=== PATIENT | male | born 1950 | race American Indian/Alaskan Native ===

== ENCOUNTER 2020-07-04 12:38 | Outpatient (CLI) | payer OTHER ==
--- NOTE | 2020-07-04 16:51 | Magnetic Resonance Report ---
MRI CERVICAL SPINE WITHOUT CONTRAST INDICATION / CLINICAL INFORMATION: CERVICAL SPONDYLOSIS. TECHNIQUE: Multisequence, multiplanar images of the cervical spine were obtained. COMPARISON: None available. FINDINGS: CRANIOCERVICAL JUNCTION:No significant abnormality. ALIGNMENT: Normal alignment of the vertebral bodies and articular facets; however, marked reversal of cervical lordosis centering at C3-C4 disc level VERTEBRAE:Normal marrow signal and vertebral body height for age. VISUALIZED SPINAL CORD: No significant abnormality. [id number] ANALYSIS: C2-3: No significant disc abnormality, spinal canal stenosis, or neural foraminal stenosis. C3-4: Significant spondylotic changes; grade 1-2 retrolistheses; broad-based extradural lesion displa cing the dural sac and spinal cord; moderate facet joint hypertrophic changes bilaterally; bilateral foraminal stenoses; increased signal intensity in the cervical spine spinal cord at this level probab ly due to spongiosis or ischemia from compression from the spondylotic changes C4-5: Grade 1-2 spondylolisthesis; disc protrusion displacing the dural sac and spinal cord; facet georgi int hypertrophic changes bilaterally; bilateral foraminal stenoses; signal intensity changes within t he spinal cord, spongiosis or ischemia from cord compression C5-6: Grade 1 retrolistheses; disc protrusion extending bilaterally symmetrically; moderate facet miguel nt hypertrophic changes; both neuroforamina are narrowed; no signal intensity changes in the spinal c ord C6-7: Grade 1 anterolisthesis; disc protrusion displacing the dural sac; moderate mild to moderate fa cet joint degenerative changes; both neuroforamina stenotic; no cord signal intensity changes C7-T1: Shallow right subarticular zone disc protrusion; right neuroforamen is narrowed; mild facet georgi int degenerative changes bilaterally PARASPINAL SOFT TISSUES: No significant abnormality. ADDITIONAL FINDINGS: None. IMPRESSION: Significant multilevel spondylotic changes C3-C4: Grade 1-2 anterolisthesis; broad-based disc protrusion displacing the dural sac and the spinal cord; signal intensity changes in the spinal cord due to spongiosis or ischemia; bilateral foraminal stenoses C4-C5: Grade 1-2 spondylolisthesis; disc protrusion displacing the dural sac and spinal cord; signal intensity changes due to spongiosis or ischemia; bilateral foraminal stenoses C5-C6: Grade 1 anterolisthesis; disc protrusion extending bilaterally symmetrically; normal signal in tensity in the spinal cord; bilateral foraminal stenoses C6-C7: Grade 1 anterolisthesis; disc protrusion displacing the dural sac; bilateral foraminal stenose s; no cord signal intensity changes C7-T1: Shallow right subarticular zone disc protrusion; right foraminal stenoses Signer Name: Cassidy Devi MD Signed: 07/04/2020 4:47 PM Workstation Name: [id number]
== END 2020-07-04 12:39 | disposition home or self-care (01) ==
LOC: MRI 12:38
PROVIDERS: ATTEND Psychiatry & Neurology Psychiatry
DX: M50.123 Cervical disc disorder at C6-C7 level with radiculopathy (principal); M50.122 Cervical disc disorder at C5-C6 level with radiculopathy; M50.121 Cervical disc disorder at C4-C5 level with radiculopathy; M47.812 Spondylosis without myelopathy or radiculopathy, cervical region; M48.02 Spinal stenosis, cervical region; M50.33 Other cervical disc degeneration, cervicothoracic region
CPT/HCPCS: 72156; A9575